=== PATIENT | female | born 1995 | race Caucasian/White ===

== ENCOUNTER → 2018-09-06 19:38 | Emergency (ER) | payer OTHER ==
[~2018-09-06 19:38] MED LIST: Acetaminophen TAB* 325 MG PO ONE; Iohexol 300* (CONTRAST) 10 ML SDV IV ONE; Metoclopramide IV* 5 MG/ML 2 ML VIAL IV SLOW PU ONE; NS 0.9% 1000 ML*IV.FLUID IV ONE
--- NOTE | 2018-09-06 21:17 | ED ---
Complex/Multi-Sys Presentation - HPI Summary HPI Summary: This patient is a 23 year old F presenting to ED with a chief complaint of nausea and vomiting since earlier today. The CC is described as productive vomiting x1 and dry x5. The patient rates the pain 3/10 in severity. Symptoms aggravated by nothing. Symptoms alleviated by nothing. Patient reports sore throat (was the first sx this morning), abdominal pain (perhaps secondary to starting her menstrual cycle today), and fever at 100F. Last BM was 1100 this morning. Patient denies diarrhea. She was seen at her [facility] 2 hours ago and was given nausea medication. - History Of Current Complaint Chief Complaint: EDNauseaVomitDiarrh Time Seen by Provider: 09/06/18 21:02 Hx Obtained From: Patient Onset/Duration: Sudden Onset, Lasting Hours, Still Present Timing: Constant, Hours Severity Currently: Mild Severity Initially: Mild Aggravating Factor(s): nothing Alleviating Factor(s): nothing Associated Signs And Symptoms: Positive: Vomiting, Diarrhea, Abdominal Pain - possibly secondary to starting her menstrual cycle today - Allergies/Home Medications Allergies/Adverse Reactions: Allergies Allergy/AdvReac Type Severity Reaction Status Date / Time No Known Allergies Allergy Verified 09/06/18 19:42 PMH/Surg Hx/FS Hx/Imm Hx Endocrine/Hematology History: Denies: Hx Diabetes Cardiovascular History: Denies: Hx Coronary Artery Disease, Hx Hypertension Infectious Disease History: No Infectious Disease History: Denies: Traveled Outside the [place] in Last 30 Days - Family History Known Family History: Positive: Diabetes - type 2 father Negative: Cardiac Disease, Hypertension - Social History Alcohol Use: Occasionally Substance Use Type: Reports: None Smoking Status (MU): Never Smoked Tobacco Review of Systems Positive: Fever Positive: Sore Throat Positive: Abdominal Pain - possibly secondary to starting her menstrual cycle today, Vomiting, Nausea. Negative: Diarrhea All Other Systems Reviewed And Are Negative: Yes Physical Exam - Summary Physical Exam Summary: VITAL SIGNS: Reviewed. GENERAL: Patient is a well-developed and nourished FEMALE who is lying comfortable in the stretcher. Patient is not in any acute respiratory distress. HEAD AND FACE: No signs of trauma. No ecchymosis, hematomas or skull depressions. No sinus tenderness. EYES: PERRLA, EOMI x 2, No injected conjunctiva, no nystagmus. EARS: Hearing grossly intact. Ear canals and tympanic membranes are within normal limits. MOUTH: Pharyngeal erythema with no exudate. NECK: Supple, trachea is midline, no adenopathy, no JVD, no carotid bruit, no c- spine tenderness, neck with full ROM. CHEST: Symmetric, no tenderness at palpation LUNGS: Clear to auscultation bilaterally. No wheezing or crackles. CVS: Regular rate and rhythm, S1 and S2 present, no murmurs or gallops appreciated. ABDOMEN: Soft, non-tender. No signs of distention. No rebound no guarding, and no masses palpated. Bowel sounds are normal. EXTREMITIES: FROM in all major joints, no edema, no cyanosis or clubbing. NEURO: Alert and oriented x 3. No acute neurological deficits. Speech is normal and follows commands. SKIN: Dry and warm Triage Information Reviewed: Yes Vital Signs On Initial Exam: Initial Vitals Temp Pulse Resp BP Pulse Ox 100.5 F 99 18 118/61 97 09/06/18 19:40 09/06/18 19:40 09/06/18 19:40 09/06/18 19:40 09/06/18 19:40 Vital Signs Reviewed: Yes Diagnostics - Vital Signs Vital Signs Temp Pulse Resp BP Pulse Ox 09/06/18 19:40 100.5 F 99 18 118/61 97 - Laboratory Result Diagrams: 09/06/18 21:42 09/06/18 21:42 Lab Statement: Any lab studies that have been ordered have been reviewed, and results considered in the medical decision making process. - Radiology CXR Radiology Interpretation Completed By: ED Physician Summary of Radiographic Findings: No Acute process. Pending official report. - CT CT ABD Pelvis CT Interpretation Completed By: Radiologist Summary of CT Findings: 1. Prominent posterior protrusion or extrusion of the L4 -L5 disc with moderate secondary spinal stenosis, left greater than right. 2. Otherwise negative CT abdomen/pelvis. This report is only to be considered final once signed by the Provider(s) as displayed in the "<Electronically Signed by >" field (s). Absence of a. signature indicates the report is in a draft status and still needs to be finalized. In the event this document was created by someone other than the. signing Provider, the individual initiating the document will be listed in the "Entered by:" or "Dictated by:" beaver. Dr. Vera has reviewed this report. Re-Evaluation - Re-Evaluation First Eval Re-Evaluation Time: 23:13 Change: Unchanged Comment: Pt is refusing a CT. Complex Multi-Symp Course/Dx Assessment/Plan: This patient is a 23 year old F presenting to ED with a chief complaint of nausea and vomiting since earlier today. Patient reports sore throat (was the first sx this morning), abdominal pain (perhaps secondary to starting her menstrual cycle today), and fever at 100F. Last BM was 1100 this morning. Patient denies diarrhea. In the ED course, the patient was given Tylenol, Reglan, and fluids. CT ABD/pelvis and CXR were negative. Bloodwork showed leukocytosis. Her strep is negative. Most likely her sx are due to gastritis. Pt will be discharged adn f/u with [facility]. - Diagnoses Provider Diagnoses: Nausea & vomiting Discharge - Sign-Out/Discharge Documenting (check all that apply): Patient Departure - Discharge Plan Condition: Stable Disposition: HOME Prescriptions: Ibuprofen TAB* [Motrin TAB* 800 MG] 800 mg PO Q6H PRN #30 tab PRN Reason: Fever/Pain Metoclopramide TAB* [Reglan TAB*] 10 mg PO Q6H PRN #20 tab PRN Reason: Nausea/Vomiting Patient Education Materials: Acute Nausea and Vomiting (ED) Referrals: [facility] - Sunday WALLIS [Medical Doctor] - Additional Instructions: RETURN TO THE EMERGENCY DEPARTMENT FOR CHANGING OR WORSENING SYMPTOMS - Attestation Statements Document Initiated by Scribe: Yes Documenting Scribe: Nicolas Downing Provider For Whom Scribe is Documenting (Include Credential): Karthik Vera MD Scribe Attestation: Nicolas Ratliff, scribed for Karthik Vera MD on 09/07/18 at 0110.
[2018-09-06 21:56] LABS: ABS Basophils 0 10^3/ul (0-0.2); ABS Eosinophils 0 10^3/ul (0-0.6); ABS Lymphocytes 0.9 10^3/ul (1.0-4.8); ABS Monocytes 0.6 10^3/ul (0-0.8); ABS Neutrophils 13.9 10^3/ul (1.5-7.7); ABS Nucleated RBC 0 10^3/ul; Eosinophil % 0 % (0-6); Hematocrit 38 % (35-47); Hemoglobin 12.7 g/dl (12.0-16.0); Lymphocyte % 5.6 % (25-47); Mean Corpuscular HGB Conc 33 g/dl (31-36); Mean Corpuscular Hemoglobin 28 pg (27-31); Mean Corpuscular Volume 83 fL (80-97); Mean Platelet Volume 11.3 fL (7.4-10.4); Nucleated Red Blood Cells % 0; Platelet Count 159 10^3/ul (150-450); Red Blood Count 4.57 10^6/ul (4.00-5.40); Red Cell Distribution Width 14 % (10.5-15); White Blood Count 15.5 10^3/ul (3.5-10.8)
[2018-09-06 22:11] LABS: EGFR Non-African American 89.3 (>60)
[2018-09-06 23:43] LABS: Urine Appearance Clear; Urine Blood 1+ (Negative); Urine Color Yellow; Urine Ketones 1+ (Negative); Urine Protein Negative (Negative); Urine Red Blood Cell Absent (Absent); Urine Specific Gravity 1.014 (1.010-1.030); Urine Urobilinogen Negative (Negative); Urine White Blood Cell Trace(0-5/hpf) (Absent)
[2018-09-07 01:04] VITALS: BP 95/57
== END | disposition home or self-care (01) ==
LOC: ED 19:38
DX: R11.2 Nausea with vomiting, unspecified (principal); R19.7 Diarrhea, unspecified; R10.9 Unspecified abdominal pain; J02.9 Acute pharyngitis, unspecified; R50.9 Fever, unspecified
CPT/HCPCS: 36415; 71045; 74177; 80053; 81003; 81015; 83605; 84702; 85025; 86140; 86308; 86664; 86665; 87040; 87086; 87651; 96361; 96374; 99283; J2765